=== PATIENT | female | born 1995 | race Hispanic/Latino ===

== ENCOUNTER 2020-03-04 22:02 | Outpatient (CLI) | payer MEDICAID ==
[2020-03-04 22:17] VITALS: BP 112/59
== END 2020-03-04 22:37 | disposition home or self-care (01) ==
LOC: TRG 22:02
PROVIDERS: ATTEND Obstetrics & Gynecology
DX: O47.03 False labor before 37 completed weeks of gestation, third trimester (principal); O42.913 Preterm premature rupture of membranes, unspecified as to length of time between rupture and onset of labor, third trimester; Z3A.36 36 weeks gestation of pregnancy
CPT/HCPCS: 59025